=== PATIENT | male | born 1980 | race Caucasian/White ===

== ENCOUNTER 2017-05-28 17:38 | Emergency (ER) | payer SELFPAY ==
[~2017-05-28] VITALS: Ht 170.2 cm; Wt 85.0 kg
[2017-05-28] MEDS ORDERED: NORCO 5/3251 TABLET PO (18:25)
[2017-05-28] MEDS ORDERED: MOTRIN600 MG PO (18:25)
[2017-05-28] MEDS ORDERED: FLEXERIL10 MG PO (18:25)
[2017-05-28 19:09] VITALS: BP 139/98
== END 2017-05-28 19:11 | disposition home or self-care (01) ==
LOC: EME 17:38
DX: M54.5 Low back pain (principal); F17.200 Nicotine dependence, unspecified, uncomplicated
CPT/HCPCS: 99281; 99283; J1885; J2270